=== PATIENT | male | born 1995 | race African-American/Black ===

== ENCOUNTER 2025-04-01 02:14 | Inpatient (IN) | payer MEDICAID ==
[2025-04-01] VITALS (9 sets, daily range): BP systolic 92–126; BP diastolic 62–86; PULSE 110–143; RESP 19–34; TEMP 36.4–38.9; O2SAT 94–100
[~2025-04-01] VITALS: Ht 182.9 cm; Wt 143.8 kg
[2025-04-01] MEDS: SODIUM CHLORIDE 0.9% (SEPSIS BOLUS) IV ONE (03:54)
[2025-04-01] MEDS: ONDANSETRON HCL 4MG/2ML INJ IV STA (03:58)
[2025-04-01] MEDS: MORPHINE SULFATE 4 MG/ML INJ (FOR IV/IM USE) IV STA (04:01)
[2025-04-01] MEDS: PIPERACILLIN/TAZO 3.375G/50ML 50 ML IV ONE (04:01)
[2025-04-01 04:32] LABS: HEMATOCRIT. 30.7 % (42.0-52.0); HEMOGLOBIN. 10.3 g/dL (14.0-18.0); MEAN PLATELET VOLUME 7.6 fl (7.4-10.4); PLATELET 372 x1000/uL (130-400); RED BLOOD CELL COUNT 3.91 mill/uL (4.7-6.1); RED CELL DISTRIBUTION WIDTH 19.2 % (11.6-14.6)
[2025-04-01 04:43] LABS: INR 1.1
[2025-04-01 04:46] LABS: CREATININE 1.4 mg/dL (0.6-1.3)
[2025-04-01 04:47] LABS: ETHANOL BLOOD < 10 mg/dL (<10); UREA NITROGEN BLOOD 13 mg/dL (9-23)
[2025-04-01 04:48] LABS: ASPARTATE AMINOTRANSFERASE 33 IU/L (<34); BILIRUBIN DIRECT 0.3 mg/dL (<=3.0)
[2025-04-01 04:49] LABS: BILIRUBIN TOTAL 0.8 mg/dL (0.1-1.0); PROTEIN TOTAL 8.7 g/dL (6.0-8.3)
[2025-04-01] MEDS: MIDAZOLAM HCL 2 MG/2 ML VIAL IV ONE (04:53)
[2025-04-01] MEDS ORDERED: IOHEXOL-300 100 ML BOTTLE ONE (06:30)
[2025-04-01] MEDS ORDERED: CLONIDINE 0.1MG TABLET PO PRN (07:45)
[2025-04-01] MEDS ORDERED: ZOLPIDEM TARTRATE 5MG TABLET PO PRN (07:45)
[2025-04-01] MEDS ORDERED: IPRATROPIUM/ALBUTEROL 0.5-3(2.5)MG/3ML NEB NEB PRN (07:45)
[2025-04-01] MEDS ORDERED: HYDROCODONE/ACETAMINOPHEN 5/325MG TABLET PO PRN (07:45)
[2025-04-01] MEDS ORDERED: NALOXONE HCL 0.4MG/ML VIAL IV PRN (07:45)
[2025-04-01] MEDS ORDERED: ENOXAPARIN 40MG/0.4ML SYR SUBCUT SCH (07:45)
[2025-04-01] MEDS: KCL 20MEQ/100ML PREMIX 100 ML IV SCH (08:12)
[2025-04-01] MEDS: PANTOPRAZOLE SODIUM 40 MG/VIAL IV SCH (08:13)
[2025-04-01] MEDS: METOPROLOL TARTRATE 25MG TABLET PO SCH (08:14)
[2025-04-01] MEDS: SODIUM CHLORIDE 0.9% 1,000 ML IV SCH (08:14)
[2025-04-01] MEDS: ENOXAPARIN 40MG/0.4ML SYR SUBCUT SCH (08:17)
[2025-04-01] MEDS: MORPHINE SULFATE 2 MG/ML INJ (NOT FOR IM USE) IV PRN (09:08)
[2025-04-01] MEDS: PIPERACILLIN/TAZO 3.375G/50ML 50 ML IV SCH (09:12)
[2025-04-01 10:50] LABS: BAND% 45.0 % (1.0-6.0); LYMPHOCYTES % MANUAL 7.0 % (20.0-50.0); NEUTROPHILS % MANUAL 48.0 % (45.0-75.0)
[2025-04-01 10:53] LABS: PLATELET ESTIMATE NORMAL
[2025-04-01] MEDS: ONDANSETRON HCL 4MG/2ML INJ IV PRN (13:29)
[2025-04-01] MEDS: METOCLOPRAMIDE HCL 10MG/2ML VIAL IV SCH (18:10)
[2025-04-01] MEDS: SUCRALFATE 1G TABLET PO SCH (18:10)
[2025-04-01] MEDS: ACETAMINOPHEN 325MG TABLET PO PRN (20:23)
[2025-04-01 20:50] LABS: CLARITY URINE CLEAR (CLEAR); COLOR URINE YELLOW (YELLOW); GLUCOSE URINE NEGATIVE (NEGATIVE); KETONES URINE NEGATIVE (NEGATIVE); LEUKOCYTE ESTERASE URINE TRACE (NEGATIVE); NITRITE URINE NEGATIVE (NEGATIVE); OCCULT BLOOD URINE NEGATIVE (NEGATIVE); PH URINE 6.0 (4.5-8.0); PROTEIN URINE 1+ (NEGATIVE); SPECIFIC GRAVITY URINE 1.024 (1.005-1.030); UROBILINOGEN URINE 1.0 E.U./dL (0.2-1.0)
[2025-04-01 21:05] LABS: BACTERIA URINE TRACE; SQUAMOUS EPITHELIAL CELL URINE FEW /lpf (RARE/1+)
[2025-04-01 21:08] LABS: *AMPHETAMINES SCREEN URINE NEGATIVE (NEGATIVE); *BARBITURATES SCREEN URINE NEGATIVE (NEGATIVE); *BENZODIAZEPINES SCREEN URINE PRESUMPTIVE POSITIVE (NEGATIVE); *COCAINE SCREEN URINE NEGATIVE (NEGATIVE); CANNABINOID URINE SCREEN NEGATIVE (NEGATIVE); ECSTASY MDMA SCREEN URINE NEGATIVE (NEGATIVE); METHADONE URINE SCREEN NEGATIVE (NEGATIVE); OPIATES URINE SCREEN PRESUMPTIVE POSITIVE (NEGATIVE); PHENCYCLIDINE URINE SCREEN NEGATIVE (NEGATIVE)
[2025-04-01 22:05] LABS: TROPONIN I HIGH SENSITIVITY 22 ng/L (3.0-53)
[2025-04-02] VITALS (10 sets, daily range): BP systolic 88–127; BP diastolic 58–75; PULSE 104–128; RESP 20–34; TEMP 36.9–38.6; O2SAT 95–98
[2025-04-02] MEDS: METOCLOPRAMIDE HCL 10MG/2ML VIAL IV SCH (12:00)
[2025-04-03] MEDS ORDERED: FAMOTIDINE 20MG/2ML VIAL IV SCH (09:00)
== END 2025-04-02 17:20 | disposition left against medical advice (07) | DRG 720 ==
LOC: ER 02:14 → 5EST 04:40 → EDBEDREQ 04:43 → ENRESERV 04:56
PROVIDERS: ADMIT Internal Medicine; ATTEND Internal Medicine
DX: A41.9 Sepsis, unspecified organism (principal); E87.20 Acidosis, unspecified; N17.9 Acute kidney failure, unspecified; D18.1 Lymphangioma, any site; R65.20 Severe sepsis without septic shock; D64.9 Anemia, unspecified; Z53.29 Procedure and treatment not carried out because of patient's decision for other reasons; E86.0 Dehydration; G89.29 Other chronic pain; E66.01 Morbid (severe) obesity due to excess calories; E87.6 Hypokalemia; Z68.41 Body mass index [BMI] 40.0-44.9, adult
CPT/HCPCS: 36415; 71045; 74177; 74181; 80048; 80076; 80305; 80320; 81003; 83605; 84145; 84484; 85025; 93005; 94640; 99291; A4606; J1650; J2250; J2270; J2405; J2470; J2543; J2765; J3480; J7030; Q9967; G0480